=== PATIENT | male | born 1990 | race Caucasian/White ===

== ENCOUNTER 2025-02-09 21:20 | Emergency (ER) | payer OTHER ==
[~2025-02-09] VITALS: Ht 172.7 cm; Wt 86.2 kg
[2025-02-09] MEDS ORDERED: ACETAMINOPHEN 500 MG TABLET ONE (23:16)
[2025-02-09] MEDS: ACETAMINOPHEN 500 MG TABLET PO ONE (23:22)
[2025-02-09 23:30] VITALS: BP 133/77
[2025-02-09] MEDS ORDERED: IBUP-1955 PO (23:37)
[2025-02-09] MEDS ORDERED: KETOROLAC TROMETHAMINE 30 MG INJ ONE (23:58)
[2025-02-10] MEDS: KETOROLAC TROMETHAMINE 30 MG INJ IM ONE (00:03)
[2025-02-10 00:15] VITALS: BP 130/75; O2SAT 99
== END 2025-02-10 00:10 | disposition home or self-care (01) ==
LOC: ER 21:20
DX: S13.4XXA Sprain of ligaments of cervical spine, initial encounter (principal); S50.02XA Contusion of left elbow, initial encounter; M25.551 Pain in right hip; R10.2 Pelvic and perineal pain; V43.62XA Car passenger injured in collision with other type car in traffic accident, initial encounter; Y93.89 Activity, other specified; Y92.488 Other paved roadways as the place of occurrence of the external cause; Y99.8 Other external cause status
CPT/HCPCS: 99285; 72125; 72170; 96372; J1885; A4606; A4663; A9150